=== PATIENT | male | born 1965 | race Asian ===

== ENCOUNTER 2020-02-20 16:26 | Inpatient (IN) | payer MEDICAID, OTHER ==
[~2020-02-20] VITALS: Ht 172.7 cm; Wt 86.4 kg
[~2020-02-20 16:26] MED LIST: COLC0.6T73 PO; FEBU40T PO; [UNRECOGNIZED DRUG - CODE] PO
[2020-02-20] MEDS ORDERED: DILT30 PO (16:30)
[2020-02-20 18:18] LABS: BASOPHILS % (AUTO) 0.7 % (0.0-2.0); EOSINOPHILS % (AUTO) 8.4 % (1.0-6.0); HEMATOCRIT 30.7 % (41-53); HEMOGLOBIN 10.1 g/dL (13.5-17.5); LYMPHOCYTES # (AUTO) 1.8 K/uL (1.0-4.8); LYMPHOCYTES % (AUTO) 25.6 % (22.0-44.0); MEAN CORPUSCULAR HEMOGLOBIN 27.6 pg (26.0-34.0); MEAN CORPUSCULAR HGB CONC 33.1 G/dL (31.0-37.0); MEAN CORPUSCULAR VOLUME 83 fL (80-100); MONOCYTES # (AUTO) 0.5 K/uL (0.1-1.0); MONOCYTES % (AUTO) 7.6 % (2.0-9.0); NEUTROPHILS # (AUTO) 4.1 K/uL (1.8-7.7); NEUTROPHILS % (AUTO) 57.7 % (40.0-70.0); PLATELET COUNT (AUTO) 393 K/uL (150-450); RED BLOOD CELL COUNT(AUTO) 3.68 MIL/uL (4.50-5.90)
[2020-02-20 18:26] LABS: CALCIUM, TOTAL 8.9 mg/dL (8.8-10.5); CREATININE 3.85 mg/dL (0.60-1.30); POTASSIUM 5.3 mmol/L (3.5-5.1)
[2020-02-20 18:32] LABS: ALBUMIN 2.9 g/dL (3.4-5.0); BILIRUBIN,TOTAL 0.6 mg/dL (0.1-1.0); TOTAL PROTEIN, SERUM 8.1 g/dL (6.4-8.2)
[2020-02-20] MEDS ORDERED: NiCARDipine HCL 25 MG in DEXTROSE 5%-WATER 240 ML IV PRN (20:15)
[2020-02-20] MEDS ORDERED: ACETAMINOPHEN 325 MG TABLET PO PRN ×2 (20:30→21:00)
[2020-02-20] MEDS ORDERED: ONDANSETRON HCL 4 MG/2 ML VIAL IVP PRN ×2 (20:30→21:00)
[2020-02-20] MEDS ORDERED: 0.9% SODIUM CHLORIDE 10 ML SYRINGE IVP PRN (20:30)
[2020-02-20] MEDS ORDERED: HydrALAZINE HCL 20 MG/ML VIAL IVP PRN (21:15)
[2020-02-21] MEDS: AmLODIPine BESYLATE 5 MG TABLET PO SCH ×3 (00:41→21:11)
[2020-02-21 06:48] LABS: BASOPHILS % (AUTO) 0.8 % (0.0-2.0); EOSINOPHILS % (AUTO) 10.9 % (1.0-6.0); HEMATOCRIT 31.5 % (41-53); HEMOGLOBIN 10.4 g/dL (13.5-17.5); LYMPHOCYTES # (AUTO) 2.1 K/uL (1.0-4.8); LYMPHOCYTES % (AUTO) 28.3 % (22.0-44.0); MEAN CORPUSCULAR HEMOGLOBIN 27.5 pg (26.0-34.0); MEAN CORPUSCULAR HGB CONC 33.1 G/dL (31.0-37.0); MEAN CORPUSCULAR VOLUME 83 fL (80-100); MONOCYTES # (AUTO) 0.5 K/uL (0.1-1.0); MONOCYTES % (AUTO) 6.5 % (2.0-9.0); NEUTROPHILS % (AUTO) 53.5 % (40.0-70.0); PLATELET COUNT (AUTO) 397 K/uL (150-450); RED BLOOD CELL COUNT(AUTO) 3.78 MIL/uL (4.50-5.90); RED CELL DISTRIBUTION WIDTH 16.2 % (11.5-14.5)
[2020-02-21 07:04] LABS: CALCIUM, TOTAL 9.2 mg/dL (8.8-10.5); CREATININE 3.85 mg/dL (0.60-1.30); MAGNESIUM 2.3 mg/dL (1.80-2.40); POTASSIUM 5.2 mmol/L (3.5-5.1)
[2020-02-21 07:13] LABS: URIC ACID 5.6 mg/dL (2.6-7.2)
[2020-02-21 08:18] VITALS: BP 139/100
[2020-02-21] MEDS: HEPARIN SODIUM,PORCINE 5,000 UNITS/ML VIAL SQ SCH ×3 (09:46→16:09)
[2020-02-21] MEDS ORDERED: SODIUM ZIRCONIUM CYCLOSILICATE 5 GM POWDER PACKET PO ONE (11:00)
[2020-02-21 11:51] VITALS: BP 143/92
[2020-02-21 16:03] VITALS: BP 123/89
[2020-02-21 20:30] VITALS: BP 148/98
[2020-02-21 21:17] VITALS: BP 148/98
[2020-02-22] MEDS: HEPARIN SODIUM,PORCINE 5,000 UNITS/ML VIAL SQ SCH ×2 (00:19→08:19)
[2020-02-22 00:24] VITALS: BP 138/89
[2020-02-22 06:00] VITALS: BP 132/77
[2020-02-22 06:53] LABS: CALCIUM, TOTAL 9.2 mg/dL (8.8-10.5); CREATININE 3.74 mg/dL (0.60-1.30); MAGNESIUM 2.2 mg/dL (1.80-2.40); PHOSPHORUS 3.9 mg/dL (2.5-4.9); POTASSIUM 4.9 mmol/L (3.5-5.1)
[2020-02-22 07:17] LABS: % IRON SATURATION 36.3 % (30-44)
[2020-02-22 07:52] LABS: URIC ACID 5.6 mg/dL (2.6-7.2)
[2020-02-22] MEDS: AmLODIPine BESYLATE 5 MG TABLET PO SCH (08:19)
[2020-02-22 15:55] LABS: CREATININE,URINE 69.4 mg/dL (30.0-125.0)
[2020-02-22 15:58] LABS: CREATININE,SERUM FOR CRCL 3.74 mg/dL (0.60-1.30)
[2020-02-22] MEDS ORDERED: AMLO-257 PO ×2 (16:11→16:14)
[2020-02-22] MEDS ORDERED: HYDR25TA84 PO (16:14)
== END 2020-02-22 17:00 | disposition home or self-care (01) | DRG 469 ==
LOC: EMS 16:26 → 5S 02-21 00:49
PROVIDERS: ADMIT Internal Medicine; ATTEND Internal Medicine
DX: N17.9 Acute kidney failure, unspecified (principal); I16.1 Hypertensive emergency; I12.9 Hypertensive chronic kidney disease with stage 1 through stage 4 chronic kidney disease, or unspecified chronic kidney disease; N18.4 Chronic kidney disease, stage 4 (severe); E87.5 Hyperkalemia; M10.9 Gout, unspecified; Z79.899 Other long term (current) drug therapy; Z91.19 Patient's noncompliance with other medical treatment and regimen
CPT/HCPCS: 76770; 81050; 82575; 83540; 83550; 83735; 83970; 84100; 84156; 84300; 84540; 84550; 93005; G0378; J0360; J1644; J3490; J7060; 36415-L1; 36415-TC; 71045-TC

== ENCOUNTER 2020-04-20 11:48 | Day surgery (SDC) | payer MEDICAID ==
[2020-04-17 16:12] LABS: COVID AG,FIA SOURCE NASOPHARYNGEAL
[~2020-04-20] VITALS: Ht 172.7 cm; Wt 81.8 kg
[~2020-04-20 11:48] MED LIST changes: +AMLO-257 PO; -COLC0.6T73 PO; -FEBU40T PO; +HYDR25TA84 PO; +SODIUM CHLORIDE 0.9% 1,000 ML IV ONE; +SODIUM CHLORIDE 0.9% 1,000 ML ONE; -[UNRECOGNIZED DRUG - CODE] PO
[2020-04-20] MEDS ORDERED: LIDOCAINE/PF 2% 5 ML VIAL IM ONE (11:49)
[2020-04-20] MEDS ORDERED: PROPOFOL 1% 20 ML VIAL IVP ONE (11:49)
[2020-04-20 12:44] LABS: GLUCOMETER DEV NAME(LOC) SDS.; GLUCOSE,POINT OF CARE 78 MG/DL (70-110)
== END 2020-04-20 15:00 | disposition home or self-care (01) ==
LOC: SURGERY 11:48
PROVIDERS: ATTEND Internal Medicine Gastroenterology
DX: Z12.11 Encounter for screening for malignant neoplasm of colon (principal); K64.9 Unspecified hemorrhoids; M10.9 Gout, unspecified; I10 Essential (primary) hypertension; E78.5 Hyperlipidemia, unspecified; Z79.899 Other long term (current) drug therapy; Z79.82 Long term (current) use of aspirin; Z72.89 Other problems related to lifestyle
CPT/HCPCS: 45378; 82962; 87426; C9803; J2704; J3490; J7030

== ENCOUNTER 2020-05-28 19:53 | Emergency (ER) | payer MEDICAID ==
[~2020-05-28] VITALS: Ht 172.7 cm; Wt 81.8 kg
[~2020-05-28 19:53] MED LIST changes: -SODIUM CHLORIDE 0.9% 1,000 ML IV ONE; -SODIUM CHLORIDE 0.9% 1,000 ML ONE
[2020-05-28 20:44] LABS: BASOPHILS % (AUTO) 0.3 % (0.0-2.0); HEMATOCRIT 27.7 % (41-53); HEMOGLOBIN 9.5 g/dL (13.5-17.5); LYMPHOCYTES # (AUTO) 3.1 K/uL (1.0-4.8); LYMPHOCYTES % (AUTO) 25.8 % (22.0-44.0); MEAN CORPUSCULAR HEMOGLOBIN 27.1 pg (26.0-34.0); MEAN CORPUSCULAR HGB CONC 34.1 G/dL (31.0-37.0); MEAN CORPUSCULAR VOLUME 79 fL (80-100); MONOCYTES # (AUTO) 0.9 K/uL (0.1-1.0); MONOCYTES % (AUTO) 7.4 % (2.0-9.0); NEUTROPHILS # (AUTO) 7.6 K/uL (1.8-7.7); NEUTROPHILS % (AUTO) 64.5 % (40.0-70.0); PLATELET COUNT (AUTO) 473 K/uL (150-450); RED BLOOD CELL COUNT(AUTO) 3.49 MIL/uL (4.50-5.90)
[2020-05-28 20:46] LABS: CALCIUM, TOTAL 9.2 mg/dL (8.8-10.5); CREATININE 3.58 mg/dL (0.60-1.30); POTASSIUM 4.3 mmol/L (3.5-5.1)
[2020-05-28 21:01] LABS: D-DIMER 3.88 mg/L FEU (0.00-0.50); INR 0.9 (0.9-1.1); PROTHROMBIN TIME 10.1 SEC (9.4-11.6)
[2020-05-28 21:04] LABS: ALBUMIN 3.6 g/dL (3.4-5.0); BILIRUBIN,TOTAL 0.4 mg/dL (0.1-1.0); C-REACTIVE PROTEIN QUANT 3.57 mg/dL (0.00-0.30); TOTAL PROTEIN, SERUM 8.8 g/dL (6.4-8.2)
[2020-05-28 21:05] LABS: COVID AG,FIA SOURCE NASOPHARYNGEAL
[2020-05-28] MEDS ORDERED: SIMV-260 PO (21:40)
[2020-05-28] MEDS ORDERED: FERR-89 PO (21:40)
[2020-05-28] MEDS ORDERED: PRED1 PO (21:40)
[2020-05-28] MEDS ORDERED: ASPI-1444 PO (21:40)
[2020-05-28] MEDS ORDERED: COLC0.6T73 PO (21:40)
[2020-05-28] MEDS ORDERED: HYDR25TA84 PO (21:40)
[2020-05-28 21:41] LABS: INFLUENZA TYPE A NEGATIVE FOR TYPE A (NEGATIVE); INFLUENZA TYPE B NEGATIVE FOR TYPE B (NEGATIVE)
[2020-05-28] MEDS ORDERED: PENTETATE DTPA TC99M/MCL ISOTOPE 1 EA INJ INJ ONE (23:05)
[2020-05-28] MEDS ORDERED: MAA ALBUMIN AGGREGATED TC99M/UD<10MCL ISOTOPE 1 EA INJ INJ ONE (23:20)
[2020-05-29 00:15] VITALS: BP 135/76
== END 2020-05-29 00:44 | disposition home or self-care (01) ==
LOC: EMS 19:53
DX: R06.02 Shortness of breath (principal); R60.0 Localized edema; Z20.822 Contact with and (suspected) exposure to COVID-19
CPT/HCPCS: 71045; 78582; 80053; 82550; 82728; 83880; 84145; 84484; 85025; 85379; 85610; 85730; 86140; 87426; 87804; 93005; 93971; 99285; A9539; A9540; U0003

== ENCOUNTER 2023-10-24 19:04 | Emergency (ER) | payer MEDICAID, OTHER ==
[~2023-10-24] VITALS: Ht 172.7 cm; Wt 86.4 kg
[~2023-10-24 19:04] MED LIST changes: +ASPI-1444 PO; +COLC-3 PO; +FERR325T27 PO; +PRED1 PO; +SIMV-260 PO
[2023-10-24 19:23] VITALS: TEMP 98
[2023-10-24] MEDS ORDERED: ALLO-97 PO (19:29)
[2023-10-24] MEDS ORDERED: CHOL25TA4 PO (19:38)
[2023-10-24] MEDS ORDERED: CINA30TA5 PO (19:38)
[2023-10-24] MEDS ORDERED: MYCO500T5 PO (19:38)
[2023-10-24] MEDS ORDERED: ATOR40TA71 PO (19:38)
[2023-10-24] MEDS ORDERED: AMLO10TA55 PO (19:38)
[2023-10-24] MEDS ORDERED: LOSA-382 PO (19:38)
[2023-10-24] MEDS: AMOX TR/POT CLAV 875 MG/125 MG TABLET PO ONE (20:02)
[2023-10-24] MEDS: BACITRACIN 0.9 GM PACKET OINTMENT TP ONE (20:03)
[2023-10-24] MEDS: RABIES IMMUNE GLOBULIN/PF 150 UNIT/ML 10 ML VIAL IM. ONE (20:09)
[2023-10-24] MEDS: RABIES VACCINE, HUMAN DIPLOID/PF 2.5 UNITS/ML VIAL IM. ONE (20:11)
[2023-10-24] MEDS ORDERED: AMOX-457 PO (20:16)
[2023-10-24] MEDS: PERTUSS(ACELL),DIPH,TET/PF 0.5 ML SYRINGE [ADULT] IM. ONE (20:29)
[2023-10-24 20:35] VITALS: BP 132/86; PULSE 98; RESP 16
== END 2023-10-24 20:55 | disposition home or self-care (01) ==
LOC: EMS 19:04
DX: S81.852A Open bite, left lower leg, initial encounter (principal); E78.00 Pure hypercholesterolemia, unspecified; I10 Essential (primary) hypertension; Z23 Encounter for immunization; W54.0XXA Bitten by dog, initial encounter; Y93.89 Activity, other specified; Y92.89 Other specified places as the place of occurrence of the external cause; Y99.8 Other external cause status
CPT/HCPCS: 90375; 90471; 90472; 90675; 90715; 96372; 99284

== ENCOUNTER 2023-10-27 08:38 | Emergency (ER) | payer OTHER ==
[~2023-10-27] VITALS: Ht 172.7 cm; Wt 86.4 kg
[~2023-10-27 08:38] MED LIST changes: +ALLO-97 PO; -AMLO-257 PO; +AMLO10TA55 PO; +AMOX-457 PO; +ATOR40TA71 PO; +CHOL25TA4 PO; +CINA30TA5 PO; -COLC-3 PO; -FERR325T27 PO; -HYDR25TA84 PO; +LOSA-382 PO; +MYCO500T5 PO; -PRED1 PO; -SIMV-260 PO
[2023-10-27 08:42] VITALS: BP 134/59; PULSE 94; RESP 18; TEMP 97.5
[2023-10-27] MEDS: RABIES VACCINE, HUMAN DIPLOID/PF 2.5 UNITS/ML VIAL IM. ONE (09:15)
== END 2023-10-27 09:31 | disposition home or self-care (01) ==
LOC: EMS 08:38
DX: S81.852D Open bite, left lower leg, subsequent encounter (principal); E78.00 Pure hypercholesterolemia, unspecified; I10 Essential (primary) hypertension; Z23 Encounter for immunization; W54.0XXD Bitten by dog, subsequent encounter
CPT/HCPCS: 90471; 90675; 99281

== ENCOUNTER 2023-10-31 15:42 | Emergency (ER) | payer OTHER ==
[~2023-10-31] VITALS: Ht 172.7 cm; Wt 81.0 kg
[2023-10-31 15:48] VITALS: TEMP 98.3
[2023-10-31 16:28] VITALS: BP 139/79; PULSE 96; RESP 16
== END 2023-10-31 16:41 | disposition home or self-care (01) ==
LOC: EMS 15:42
DX: S81.812D Laceration without foreign body, left lower leg, subsequent encounter (principal); E78.00 Pure hypercholesterolemia, unspecified; I10 Essential (primary) hypertension; W54.0XXD Bitten by dog, subsequent encounter
CPT/HCPCS: 99281; Z7502

== ENCOUNTER 2024-01-08 12:12 | Inpatient (IN) | payer OTHER ==
[~2024-01-08] VITALS: Ht 172.7 cm; Wt 88.9 kg
[2024-01-08 13:39] LABS: BASOPHILS % (AUTO) 0.4 % (0.0-2.0); EOSINOPHILS % (AUTO) 1.6 % (1.0-6.0); HEMATOCRIT 30.5 % (41-53); HEMOGLOBIN 9.7 g/dL (13.5-17.5); LYMPHOCYTES # (AUTO) 1.3 K/uL (1.0-4.8); LYMPHOCYTES % (AUTO) 9.5 % (22.0-44.0); MEAN CORPUSCULAR HEMOGLOBIN 27.3 pg (26.0-34.0); MEAN CORPUSCULAR HGB CONC 31.7 G/dL (31.0-37.0); MEAN CORPUSCULAR VOLUME 86 fL (80-100); MONOCYTES % (AUTO) 7.3 % (2.0-9.0); NEUTROPHILS # (AUTO) 11.6 K/uL (1.8-7.7); NEUTROPHILS % (AUTO) 81.2 % (40.0-70.0); PLATELET COUNT (AUTO) 367 K/uL (150-450); RED BLOOD CELL COUNT(AUTO) 3.54 MIL/uL (4.50-5.90); RED CELL DISTRIBUTION WIDTH 18.6 % (11.5-14.5); WHITE BLOOD COUNT (AUTO) 14.2 K/uL (4.5-11.0)
[2024-01-08 13:45] LABS: TROPONIN I-HIGH SENSITIVITY 7 ng/L (<76)
[2024-01-08 13:51] LABS: BILIRUBIN,TOTAL 0.5 mg/dL (0.1-1.0); CREATININE 13.06 mg/dL (0.60-1.30)
[2024-01-08 14:00] LABS: POTASSIUM 3.7 mmol/L (3.5-5.1)
[2024-01-08] MEDS ORDERED: HYDR25TA84 PO (16:17)
[2024-01-08] MEDS: PIPERACILLIN/TAZO 3.375 GM/D5W 50 ML IV ONE (16:41)
[2024-01-08] MEDS: MetroNIDAZOLE 500 MG/NACL 100 ML IV ONE (16:41)
[2024-01-08] MEDS ORDERED: ONDANSETRON HCL 4 MG/2 ML VIAL IVP PRN (19:15)
[2024-01-08] MEDS ORDERED: MORPHINE SULFATE 2 MG/ML SYRINGE IVP PRN (19:15)
[2024-01-08] MEDS ORDERED: HYDROCODONE/ACETAMINOPHEN 5-325 MG TABLET PO PRN (19:15)
[2024-01-08] MEDS ORDERED: MAGNESIUM HYDROXIDE SUSPENSION 30 ML UDCUP PO PRN (19:15)
[2024-01-08] MEDS ORDERED: BISACODYL 10 MG RECTAL RECTAL SUPPOSITORY PR PRN (19:15)
[2024-01-08] MEDS ORDERED: ZOLPIDEM TARTRATE 5 MG TABLET PO PRN (19:15)
[2024-01-08] MEDS ORDERED: VANCOMYCIN 1GM/WATER(PEG/NADA) 200 ML IV ONE (19:45)
[2024-01-08 19:51] LABS: APPEARANCE,URINE CLEAR (CLEAR); BILIRUBIN,URINE NEGATIVE (NEGATIVE); COLOR,URINE COLORLESS (YELLOW); GLUCOSE, URINE (UA) 70-100 mg/dL (NEGATIVE); KETONES,URINE NEGATIVE (NEGATIVE); LEUKOCYTE ESTERASE ,URINE NEGATIVE (NEGATIVE); NITRATE,URINE NEGATIVE (NEGATIVE); OCCULT BLOOD,URINE TRACE (NEGATIVE); PH,URINE 7.5 (5.0-8.0); PROTEIN,URINE 100-200,SEE CONFIRM mg/dL (NEGATIVE); SPECIFIC GRAVITIY, URINE 1.008 (1.003-1.030); UROBILINOGEN,URINE <=1.0 mg/dL (<=1.0)
[2024-01-08] MEDS ORDERED: VANCOMYCIN 1GM/WATER(PEG/NADA) 200 ML IV PRN (20:15)
[2024-01-08] MEDS: VANCOMYCIN 1.5 GM/WATER(PEG) 300 ML IV ONE (20:22)
[2024-01-08 20:25] LABS: SULFOSALICYLIC ACID,URINE 2+ (Negative)
[2024-01-08 20:26] LABS: BACTERIA,URINE None Seen /HPF (None Seen); RBC,URINE 0-2 /HPF (0-2); WBC,URINE None Seen /HPF (0-5)
[2024-01-08 21:01] VITALS: BP 137/84; PULSE 85; RESP 20; TEMP 98.5; O2SAT 97
[2024-01-08] MEDS ORDERED: SODIUM CHLORIDE 0.9% 500 ML IV ONE (21:05)
[2024-01-08] MEDS: DOCUSATE SODIUM 100 MG CAPSULE PO SCH (23:21)
[2024-01-08] MEDS: HydrALAZINE HCL 25 MG TABLET PO SCH (23:21)
[2024-01-08] MEDS: HEPARIN SODIUM,PORCINE 5,000 UNITS/ML VIAL SQ SCH (23:21)
[2024-01-09 04:20] VITALS: BP 111/73; PULSE 86; RESP 18; TEMP 98.7; O2SAT 95
[2024-01-09 07:28] LABS: CALCIUM, TOTAL 8.3 mg/dL (8.8-10.5); CREATININE 13.96 mg/dL (0.60-1.30); POTASSIUM 4.3 mmol/L (3.5-5.1)
[2024-01-09 07:29] LABS: BASOPHILS % (AUTO) 0.7 % (0.0-2.0); EOSINOPHILS % (AUTO) 3.7 % (1.0-6.0); HEMOGLOBIN 8.8 g/dL (13.5-17.5); LYMPHOCYTES # (AUTO) 1.2 K/uL (1.0-4.8); LYMPHOCYTES % (AUTO) 10.5 % (22.0-44.0); MEAN CORPUSCULAR HEMOGLOBIN 27.8 pg (26.0-34.0); MEAN CORPUSCULAR HGB CONC 32.4 G/dL (31.0-37.0); MEAN CORPUSCULAR VOLUME 86 fL (80-100); MONOCYTES # (AUTO) 0.7 K/uL (0.1-1.0); MONOCYTES % (AUTO) 6.2 % (2.0-9.0); NEUTROPHILS # (AUTO) 9.1 K/uL (1.8-7.7); NEUTROPHILS % (AUTO) 78.9 % (40.0-70.0); PLATELET COUNT (AUTO) 331 K/uL (150-450); RED BLOOD CELL COUNT(AUTO) 3.15 MIL/uL (4.50-5.90); RED CELL DISTRIBUTION WIDTH 18.8 % (11.5-14.5); WHITE BLOOD COUNT (AUTO) 11.5 K/uL (4.5-11.0)
[2024-01-09 08:34] VITALS: BP 114/74; PULSE 83; RESP 16; TEMP 97.7; O2SAT 96
[2024-01-09] MEDS: CHOLECALCIFEROL (VIT D3) 1,000 UNITS [25 MCG] TABLET PO SCH (08:39)
[2024-01-09] MEDS: AmLODIPine BESYLATE 10 MG TABLET PO SCH (08:40)
[2024-01-09] MEDS: PANTOPRAZOLE SODIUM 40 MG DR TABLET PO SCH (08:40)
[2024-01-09] MEDS: ASPIRIN 81 MG DR TABLET PO SCH (08:40)
[2024-01-09] MEDS: ALLOPURINOL 100 MG TABLET PO SCH (08:40)
[2024-01-09] MEDS: LOSARTAN POTASSIUM 50 MG TABLET PO SCH (08:40)
[2024-01-09] MEDS: ATORVASTATIN CALCIUM 40 MG TABLET PO SCH (08:40)
[2024-01-09] MEDS: CALCITRIOL 0.25 MCG CAPSULE PO ONE (11:10)
[2024-01-09] MEDS: SEVELAMER CARBONATE 800 MG TABLET PO SCH (12:18)
[2024-01-09] MEDS: NYSTATIN 500,000 UNITS/5 ML SUSPENSION UDCUP PO SCH (18:27)
[2024-01-09 20:07] VITALS: BP 118/75; PULSE 87; RESP 18; TEMP 98.5; O2SAT 98
[2024-01-09] MEDS ORDERED: DEX IP PRN (21:15)
[2024-01-09] MEDS ORDERED: [UNRECOGNIZED DRUG - OTHER] IP PRN (21:15)
[2024-01-09] MEDS ORDERED: CEFAZOLIN SODIUM IP PRN (21:15)
[2024-01-09] MEDS ORDERED: VANCOMYCIN HCL IP PRN (21:15)
[2024-01-09 23:00] VITALS: BP 121/74; PULSE 80; RESP 16; TEMP 98.6; O2SAT 98
[2024-01-09 23:44] LABS: SPECIMENTYPE,BODY FLUID PERITONEAL
[2024-01-10 00:57] LABS: APPEARANCE,SPUN,BODY FLUID CLEAR (CLEAR); APPEARANCE,UNSPUN,BODY FLUID HAZY (CLEAR); COLOR,BODY FLUID LT YELLOW (LT YELLOW); TOTAL VOLUME,BODY FLUID 15 mL
[2024-01-10 00:58] LABS: BASOPHILS,BODY FLUID 0 %; EOSINOPHILS,BF (ANAL) 0 %; LYMPHOCYTES,BODY FLUID 8 %; MONOCYTES,BODY FLUID 12 %; NEUTROPHILS,BODY FLUID 80 %; WBC, BODY FLUID 170 /cu. mm.
[2024-01-10 04:39] VITALS: BP 125/81; PULSE 89; RESP 18; TEMP 98.4; O2SAT 96
[2024-01-10 06:55] LABS: BASOPHILS % (AUTO) 0.5 % (0.0-2.0); EOSINOPHILS % (AUTO) 7.2 % (1.0-6.0); HEMATOCRIT 27.9 % (41-53); HEMOGLOBIN 9.2 g/dL (13.5-17.5); LYMPHOCYTES # (AUTO) 1.2 K/uL (1.0-4.8); MEAN CORPUSCULAR HEMOGLOBIN 28.1 pg (26.0-34.0); MEAN CORPUSCULAR HGB CONC 32.9 G/dL (31.0-37.0); MEAN CORPUSCULAR VOLUME 86 fL (80-100); MONOCYTES # (AUTO) 0.8 K/uL (0.1-1.0); MONOCYTES % (AUTO) 7.7 % (2.0-9.0); NEUTROPHILS # (AUTO) 7.3 K/uL (1.8-7.7); NEUTROPHILS % (AUTO) 72.6 % (40.0-70.0); PLATELET COUNT (AUTO) 391 K/uL (150-450); RED BLOOD CELL COUNT(AUTO) 3.26 MIL/uL (4.50-5.90); RED CELL DISTRIBUTION WIDTH 18.4 % (11.5-14.5)
[2024-01-10 07:09] LABS: CREATININE 12.58 mg/dL (0.60-1.30); POTASSIUM 3.7 mmol/L (3.5-5.1)
[2024-01-10 08:11] VITALS: BP 130/82; PULSE 86; RESP 19; TEMP 98.5; O2SAT 100
[2024-01-10] MEDS: CINACALCET HCL 30 MG TABLET PO SCH (08:26)
[2024-01-10] MEDS: PredniSONE 20 MG TABLET PO PRN (14:44)
[2024-01-10 17:13] VITALS: BP 130/79; PULSE 98; RESP 20; TEMP 98.2; O2SAT 98
[2024-01-10 19:44] VITALS: BP 130/78; PULSE 102; RESP 18; TEMP 99.3; O2SAT 96
[2024-01-10 20:00] VITALS: BP 130/78; PULSE 102; RESP 18; TEMP 99.3; O2SAT 96
[2024-01-10 20:40] VITALS: BP 130/78; PULSE 102; RESP 18; TEMP 99.3; O2SAT 96
[2024-01-10] MEDS: ACETAMINOPHEN 325 MG TABLET PO PRN (21:21)
[2024-01-10 23:02] LABS: SPECIMENTYPE,BODY FLUID PERITONEAL
[2024-01-10 23:40] LABS: APPEARANCE,SPUN,BODY FLUID CLEAR (CLEAR); APPEARANCE,UNSPUN,BODY FLUID SLIGHTLY CLOUDY (CLEAR); COLOR,BODY FLUID LT YELLOW (LT YELLOW); TOTAL VOLUME,BODY FLUID 34 mL; WBC, BODY FLUID 188 /cu. mm.
[2024-01-11 00:02] LABS: BASOPHILS,BODY FLUID 0 %; EOSINOPHILS,BF (ANAL) 0 %; LYMPHOCYTES,BODY FLUID 6 %; MONOCYTES,BODY FLUID 14 %; NEUTROPHILS,BODY FLUID 80 %
[2024-01-11 04:12] VITALS: BP 127/82; PULSE 90; RESP 18; TEMP 98.2; O2SAT 97
[2024-01-11 07:12] LABS: BASOPHILS % (AUTO) 0.3 % (0.0-2.0); EOSINOPHILS % (AUTO) 0 % (1.0-6.0); HEMATOCRIT 29.1 % (41-53); HEMOGLOBIN 9.4 g/dL (13.5-17.5); LYMPHOCYTES # (AUTO) 0.6 K/uL (1.0-4.8); LYMPHOCYTES % (AUTO) 5.2 % (22.0-44.0); MEAN CORPUSCULAR HEMOGLOBIN 27.6 pg (26.0-34.0); MEAN CORPUSCULAR HGB CONC 32.2 G/dL (31.0-37.0); MEAN CORPUSCULAR VOLUME 86 fL (80-100); MONOCYTES # (AUTO) 0.3 K/uL (0.1-1.0); MONOCYTES % (AUTO) 2.5 % (2.0-9.0); NEUTROPHILS # (AUTO) 11.2 K/uL (1.8-7.7); PLATELET COUNT (AUTO) 389 K/uL (150-450); RED BLOOD CELL COUNT(AUTO) 3.39 MIL/uL (4.50-5.90); RED CELL DISTRIBUTION WIDTH 18.6 % (11.5-14.5); WHITE BLOOD COUNT (AUTO) 12.1 K/uL (4.5-11.0)
[2024-01-11 07:22] LABS: CALCIUM, TOTAL 8.8 mg/dL (8.8-10.5); CREATININE 11.05 mg/dL (0.60-1.30)
[2024-01-11 08:01] VITALS: BP 127/76; PULSE 95; RESP 18; TEMP 97.7; O2SAT 97
[2024-01-11] MEDS: EPOETIN ALFA 10,000 UNITS/ML VIAL SQ SCH (09:10)
[2024-01-11 16:00] VITALS: BP 137/80; PULSE 80; RESP 18; TEMP 98.3; O2SAT 97
[2024-01-11] MEDS ORDERED: PRED-729 PO (18:45)
[2024-01-12 13:08] LABS: LDH,BODY FLUID,REF 36 IU/L; TOTAL PROTEIN,BODY FLUID,REF 0.2 g/dL
== END 2024-01-11 20:03 | disposition home or self-care (01) | DRG 466 ==
LOC: EMS 12:12 → EDH 19:25 → 4E 20:42
PROVIDERS: ADMIT Internal Medicine; ATTEND Internal Medicine
PROC: 3E1M39Z Irrigation of Peritoneal Cavity using Dialysate, Percutaneous Approach (ICD-10-PCS; principal; 2024-01-09)
DX: T85.71XA Infection and inflammatory reaction due to peritoneal dialysis catheter, initial encounter (principal); K65.0 Generalized (acute) peritonitis; N18.6 End stage renal disease; I12.0 Hypertensive chronic kidney disease with stage 5 chronic kidney disease or end stage renal disease; R65.10 Systemic inflammatory response syndrome (SIRS) of non-infectious origin without acute organ dysfunction; D63.1 Anemia in chronic kidney disease; M10.9 Gout, unspecified; I25.10 Atherosclerotic heart disease of native coronary artery without angina pectoris; Y84.1 Kidney dialysis as the cause of abnormal reaction of the patient, or of later complication, without mention of misadventure at the time of the procedure; E78.00 Pure hypercholesterolemia, unspecified; Y83.8 Other surgical procedures as the cause of abnormal reaction of the patient, or of later complication, without mention of misadventure at the time of the procedure; B95.8 Unspecified staphylococcus as the cause of diseases classified elsewhere; Y92.89 Other specified places as the place of occurrence of the external cause; Z79.899 Other long term (current) drug therapy; Z99.2 Dependence on renal dialysis
CPT/HCPCS: 71045; 71250; 72192; 74150; 76700; 80048; 80053; 81001; 81002; 82042; 83615; 83690; 84157; 84484; 85025; 87040; 87075; 87205; 89051; 90945; 93005; 99285; G0378; J0690; J0885; J1644; J2543; J3370; J3490; J7040; 36415-L1; 36415-TC; 87070

== ENCOUNTER 2025-01-24 14:13 | Emergency (ER) | payer OTHER ==
[~2025-01-24] VITALS: Ht 172.7 cm; Wt 81.8 kg
[~2025-01-24 14:13] MED LIST changes: -AMOX-457 PO; +CARV3 PO; +FOLI0.8T54 PO; -LOSA-382 PO; -MYCO500T5 PO; +ONDA-104 PO; +SEVE800T7 PO; +SODI5POW3 PO
[2025-01-24 14:35] VITALS: BP 142/81; PULSE 92; RESP 16; TEMP 98.2; O2SAT 98
[2025-01-24 17:52] LABS: PLATELET COUNT (AUTO) 295 K/uL (150-450); RED BLOOD CELL COUNT(AUTO) 4.09 MIL/uL (4.50-5.90); RED CELL DISTRIBUTION WIDTH 21.8 % (11.5-14.5); WHITE BLOOD COUNT (AUTO) 10.2 K/uL (4.5-11.0)
[2025-01-24 17:56] LABS: CALCIUM, TOTAL 8.8 mg/dL (8.8-10.5); CREATININE 14.59 mg/dL (0.60-1.30); GLOMERULAR FILTR. RATE CALC 3.0 mL/min (>60); GLUCOSE,RANDOM 90.0 mg/dL (70-110); SODIUM SERUM 130.0 mmol/L (136-145); UREA NITROGEN, BLOOD 60.0 mg/dL (7-18)
[2025-01-24] MEDS: MAGNESIUM CITRATE [LEMON] 300 ML ORAL SOLUTION PO ONE (18:37)
== END 2025-01-24 21:00 | disposition home or self-care (01) ==
LOC: EMS 14:21
DX: K59.00 Constipation, unspecified (principal); E78.00 Pure hypercholesterolemia, unspecified; I10 Essential (primary) hypertension; M10.9 Gout, unspecified; N19 Unspecified kidney failure; Z79.82 Long term (current) use of aspirin; Z79.899 Other long term (current) drug therapy; Z99.2 Dependence on renal dialysis; Z98.890 Other specified postprocedural states
CPT/HCPCS: 80048; 85025; 99283